=== PATIENT | male | born 1970 | race Two or more races ===

== ENCOUNTER 2025-01-05 15:51 | Emergency (ER) | payer OTHER ==
[~2025-01-05] VITALS: Ht 167.6 cm; Wt 95.5 kg
--- NOTE | 2025-01-05 16:19 | ED.PDOC ---
HPI (NEURO) HPI Comments 54-year-old male with no pertinent past medical history, presents to ED for headache x2 months, associated with tingling in his hands, dizziness. Patient reports his dizziness as a spinning sensation. He states that the symptoms started when he fell at work and hit his head on a car roni. He denies any loss of consciousness at that time. He also reports that he remembers the event. Patient reports that he was seen at [facility] after the accident and he was given an injection and discharged. He did not receive any imaging. He states that he was prescribed ibuprofen that he took intermittently with some relief of symptoms, however he states that he did not continue taking it. Patient currently rates his pain as 10/10 in severity. Patient denies any fever, chills, nausea, vomiting, chest pain, shortness of breath, fever Chief Complaint: Headache Time Seen by MD: 15:54 Reviewed Notes: Nurses Notes, Medications, Allergies Mode of Arrival: Ambulatory Past Medical History PAST MEDICAL HISTORY: Denies Surgical History: Denies all surgeries Family History Family History: Reviewed,noncontributory to illness, No family hx of Cancer, No family hx of DM, No family hx of Heart elif, No family hx of HTN, No family hx ofKidney elif, No family hx of Liver elif, No family hx of Lung elif, No family hx of Stroke Social History Smoker: Non-Smoker Alcohol: Denies ETOH Use Drugs: Denies Drug Use Constitutional: denies: chills, diaphoresis, fatigue, fever, malaise, sweats, weakness, others EENTM: denies: blurred vision, double vision, ear bleeding, ear discharge, ear drainage, ear pain, ear ringing, eye pain, eye redness, hearing loss, mouth pain, mouth swelling, nasal discharge, nose bleeding, nose congestion, nose pain, photophobia, tearing, throat pain, throat swelling, voice changes, others Respiratory: denies: cough, hemoptysis, orthopnea, SOB at rest, shortness of breath, SOB with excertion, stridor, wheezing, others Cardiovascular: denies: chest pain, dizzy spells, diaphoresis, Dyspnea on exertion, edema, irregular heart beat, left arm pain, lightheadedness, palpitations, PND, syncope, others Gastrointestinal: denies: abdomen distended, abdominal pain, blood streaked bowels, constipated, diarrhea, dysphagia, difficulty swallowing, hematemesis, melena, nausea, poor appetite, poor fluid intake, rectal bleeding, rectal pain, vomiting, others Genitourinary: denies: burning, dysuria, flank pain, frequency, hematuria, incontinence, penile discharge, penile sore, pain, testicle pain, testicle swelling, urgency, others Neurological: reports: headache, tingling; denies: dizziness, fainting, left sided numbness, left sided weakness, numbness, paresthesia, pre-existing deficit, right sided numbness, right sided weakness, seizure, speech problems, tremors, weakness, others Musculoskeletal: denies: back pain, gout, joint pain, joint swelling, muscle pain, muscle stiffness, neck pain, others Integumetry: denies: bruises, change in color, change in hair/nails, dryness, laceration, lesions, lumps, rash, wounds, others Allergic/Immunocompromised: denies: Difficulty Healing, Frequent Infections, Hives, Itching, others Hematologic/Lymphatic: denies: anemia, blood clots, easy bleeding, easy bruising, swollen glands, others Endocrine: denies: excessive hunger, excessive sweating, excessive thirst, excessive urination, flushing, intolerance to cold, intolerance to heat, unexplained weight gain, unexplained weight loss, others Psychiatric: denies: anxiety, bipolar disorder, depression, hopeless, panic disorder, schizophrenia, sleepless, suicidal, others All Other Systems: Reviewed and Negative Physical Exam General Appearance: Mild Distress, Normal HEENT: Head (No hematomas or lacerations. No raccoon eyes.), Normal ENT Inspec tion, PERRL/EOMI, Pharynx Normal, TMs Normal Neck: Full Range of Motion, Non-Tender, Normal, Normal Inspection Respiratory: Chest Non-Tender, Lungs Clear, No Accessory Muscle Use, No Respiratory Distress, Normal Breath Sounds Cardiovascular: No Edema, No JVD, No Murmur, No Gallop, Normal Peripheral Pulses, Regular Rate/Rhythm Breast Exam: Deferred Gastrointestinal: No Organomegaly, Non Tender, No Pulsatile Mass, Normal Bowel Sounds, Soft Genitalia: Deferred Pelvic: Deferred Rectal: Deferred Extremities: No calf tenderness, Normal capillary refill, Normal inspection, Normal range of motion, Non-tender, No pedal edema Musculoskeletal : Apperance: Normal Neurologic: Alert, medical attendant II-XII nml as Tested, No Motor Deficits, Normal Affect, Normal Mood, No Sensory Deficits, Other (5/5 strength in bilateral upper and lower extremities. Negative pronator drift. Negative facial droop.) Cerebellar Function: Normal Reflexes: Normal Skin: Dry, Normal Color, Warm Lymphatic: No Adenopathy Was a procedure done? Was a procedure done?: No Differential Diagnosis (SZ) Headache: Cluster, Migraine, Closed Head Injury, CVA, Epidural Hemorrhage, Intracerebral Hemorrhage, Subarachnoid Hemorrhage, Subdural Hemorrhage, Mass Lesion, Post-Traumatic X-Ray, Labs, Meds, VS Vital Signs Date Time Temp Pulse Resp B/P (MAP) Pulse Ox O2 Delivery O2 Flow Rate FiO2 01/05/25 17:00 98.2 99 18 142/71 (94) 95 98.2 01/05/25 17:00 99 18 95 Room Air 01/05/25 16:09 97.6 100 17 150/101 (117) 96 97.6 Current Medications Medications (Trade) Dose Ordered Sig/Tarun Route Start Time Stop Time Status Last Admin Sodium Chloride 1,000 ml @ 1,000 mls/hr Q1H ONCE IV 01/05/25 16:15 01/05/25 17:14 DC 01/05/25 17:20 Ketorolac Tromethamine (Toradol Injection) 30 mg ONCE ONCE IV 01/05/25 17:00 01/05/25 17:01 DC 01/05/25 17:24 Prochlorperazine Edisylate (Compazine Inj) 10 mg ONCE ONCE IV 01/05/25 17:00 01/05/25 17:01 DC 01/05/25 17:22 Diphenhydramine HCl (Benadryl Injection) 25 mg ONCE ONCE IV 01/05/25 17:00 01/05/25 17:01 DC 01/05/25 17:25 Dexamethasone Sodium Phosphate (Decadron Injection) 10 mg ONCE ONCE IV 01/05/25 17:00 01/05/25 17:01 DC 01/05/25 17:23 X-Ray, Labs, Meds, VS Comment CT Head IMPRESSION: 1. No acute intracranial process. MDM: Patient with history as above presented with headache. History obtained from patient and son. Patient was nontoxic, stable, afebrile, ambulatory, mild distress. Exam as above. Independently reviewed imaging. CT Head did not show a cute intracranial abnormality. Reviewed external records. All findings were discussed with the patient. Differential diagnosis considered. Overall presentation is consistent with post concussion syndrome. Low suspicion for skull fracture, intracranial bleed, CVA. Patient was treated with Toradol, Decadron, Compazine, Benadryl, IV fluids with improvement in symptoms. Patient was reevaluated and vital signs were reviewed. Consideration was given for admission, but the patient was stable for outpatient management. Patient was prescribed ibuprofen for outpatient treatment. Advised patient that he needs to follow up with Neurology for further evaluation. Disposition: Discussed the need to follow up diagnostics, including incidental findings. Discharged the patient with instructions to obtain outpatient follow up in 1-2 days of today's symptoms and findings, with strict return precautions if patient develops new or worsening symptoms. This medical document was created using the [employer] dictation system. Although this document has been carefully reviewed, there may still be some phonetic and typographical errors, which are due to imperfections of the software program, and do not reflect any compromise in the patient's medical care. Time of 1ST Reevaluation: 17:35 Reevaluation 1ST: Improved Patient Education/Counseling: Diagnosis, Treatment, Prognosis, Need For Follow Up Family Education/Counseling: No Family Present Departure 1 Departure Time of Disposition: 17:35 Impression: Primary Impression: Postconcussion syndrome Disposition: HOME / SELF CARE / HOMELESS Condition: Fair e-Prescriptions Ibuprofen Micronized (Ibuprofen) 800 Mg Tab 800 MG PO Q8HPRN PRN, #30 TAB Prov: DIANA MICHELLE 01/05/25 Critical Care Note Critical Care Time?: No Stability Stability form required: No Heart Score Heart Score: Heart Score Response (Comments) Value History N/A 0 EKG N/A 0 Age N/A 0 Risk Factors N/A 0 Troponin N/A 0 Total 0 DIANA MICHELLE Jan 05, 2025 16:19
--- NOTE | 2025-01-05 16:47 | DVH ---
EXAM: CT HEAD WITHOUT CONTRAST HISTORY: Head injury x 2 months COMPARISON: None TECHNIQUE: Axial images of the head were obtained and reformatted in coronal and sagittal planes. All CT scans at this medical facility are performed using dose modulation techniques as appropriate t o a performed exam including the following: Automated exposure control was utilized; adjustment of th e MA and/or KV according to patient size; and use of iterative reconstruction technique. CT Dose: CTDI volume is 61.65 mGy. Dose-length product is 988.11 mGy*cm FINDINGS: There is no evidence of acute intracranial hemorrhage, mass, mass effect midline shift. There is no h ydrocephalus or extra-axial fluid collection. Lemons-white matter differentiation is maintained. The visualized paranasal sinuses and mastoid air cells are clear. The calvarium is intact. IMPRESSION: 1. No acute intracranial process. HS:Y
[2025-01-05] MEDS: SODIUM CHLORIDE 0.9% 1,000 ML IV ONE (17:20)
[2025-01-05] MEDS: PROCHLORPERAZINE EDISYLATE 5 MG/ML 2ML VIAL IV ONE (17:22)
[2025-01-05] MEDS: DexAMETHasone SOD PHOS 10MG/1ML VIAL INJ IV ONE (17:23)
[2025-01-05] MEDS: KETOROLAC TROMETH 30 MG/ML 1ML VIAL IV ONE (17:24)
[2025-01-05] MEDS: diphenhdrAMINE HCL 50 MG/1 ML VL IV ONE (17:25)
[2025-01-05] MEDS ORDERED: IBUP-1455 PO (17:35)
[2025-01-05 17:57] VITALS: BP 121/74; PULSE 87; RESP 20; TEMP 97.9; O2SAT 95
== END 2025-01-05 17:58 | disposition home or self-care (01) ==
LOC: ER 15:51
DX: F07.81 Postconcussional syndrome (principal); R51.9 Headache, unspecified
CPT/HCPCS: 70450; 96374; 96375; 99285; J0780; J1100; J1200; J1885